=== PATIENT | female | born 1990 | race Caucasian/White ===

== ENCOUNTER 2017-08-09 13:49 | Emergency (ER) | payer SELFPAY ==
--- NOTE | 2017-08-09 13:56 | PDOC ---
History of Present Illness - General History Source: Patient Exam Limitations: No Limitations - History of Present Illness Initial Comments: 08/09/17 14:52 The patient is a 26 year old female, with a significant past medical history of anxiety and insomnia, B12 deficiency, who presents to the emergency department with, multiple complaints. The patient states she has had a persistent non productive cough since April. The patient reports that in April she was diagnosed with pneumonia and prescribed Augmentin which she reports did not help. The patient states she was then switched to a Z-Pack which improved her cough from productive to non productive. The patient also reports she has been measuring her temperature for the past week which has ranged from 92-102F. The patient states she has been taking Motrin for the elevated temperatures with mild relief. The patient also reports recent headache, generalized body aches, decrease in appetite, and one episode of nausea with emesis (non bloody, non bilious) yesterday. She denies recent lightheadedness or dizziness. She denies recent diarrhea or constipation. She denies recent dysuria, frequency, urgency or hematuria. She denies recent chest pain or shortness of breath. Allergies: trazodone <Parish Pratt - Last Filed: 08/09/17 15:14> <Leida Terry - Last Filed: 08/12/17 07:59> - General Chief Complaint: Cold Symptoms Stated Complaint: COUGH BODY ACHES Time Seen by Provider: 08/09/17 13:55 Past History <Parish Pratt - Last Filed: 08/09/17 15:14> - Past Medical History Psychiatric Problems: Yes (ANXIETY,INSOMNIA) - Suicide/Smoking/Psychosocial Hx Smoking History: Never smoked Have you smoked in the past 12 months: No Hx Alcohol Use: No Drug/Substance Use Hx: No Substance Use Type: None <Leida Terry - Last Filed: 08/12/17 07:59> - Past Medical History Allergies/Adverse Reactions: Allergies Allergy/AdvReac Type Severity Reaction Status Date / Time trazodone Allergy Severe Difficulty Verified 08/09/17 13:51 Breathing Home Medications: Ambulatory Orders Citalopram Hydrobromide [Celexa -] 40 mg PO DAILY 08/09/17 Eszopiclone 3 mg PO HS 08/09/17 l-Norgest/E.estradiol-E.estrad [Levono-E Estrad 0.10-0.02-0.01] 1 tab PO DAILY 08/09/17 Review of Systems - Review of Systems Comments:: 08/09/17 14:52 GENERAL/CONSTITUTIONAL: +Fevers. +Decrease in appetite. No weakness. HEAD, EYES, EARS, NOSE AND THROAT: No change in vision. No ear pain or discharge. No sore throat. CARDIOVASCULAR: No chest pain or shortness of breath. RESPIRATORY: +Non productive cough. No wheezing, or hemoptysis. GASTROINTESTINAL:+Nausea. +Vomiting. No diarrhea or constipation. GENITOURINARY: No dysuria, frequency, or change in urination. MUSCULOSKELETAL: +Generalized body aches. No neck or back pain. SKIN: No rash NEUROLOGIC: +Headache. No vertigo, loss of consciousness, or change in strength/ sensation. ENDOCRINE: No increased thirst. No abnormal weight change. HEMATOLOGIC/LYMPHATIC: No anemia, easy bleeding, or history of blood clots. ALLERGIC/IMMUNOLOGIC: No hives or skin allergy. <Parish Pratt - Last Filed: 08/09/17 15:14> *Physical Exam - Vital Signs Last Vital Signs Temp Pulse Resp BP Pulse Ox 98.8 F 93 H 16 121/86 99 08/09/17 13:50 08/09/17 13:50 08/09/17 13:50 08/09/17 13:50 08/09/17 13:50 - Physical Exam Comments: 08/09/17 15:12 GENERAL: Awake, alert, and fully oriented, in no acute distress HEAD: No signs of trauma EYES: PERRLA, EOMI, sclera anicteric, conjunctiva clear ENT: Auricles normal inspection, hearing grossly normal, nares patent, oropharynx clear without exudates. Moist mucosa NECK: +Mild thyromegaly with tenderness to partial right thyroid. Normal ROM, supple, no JVD. LUNGS: Breath sounds equal, clear to auscultation bilaterally. No wheezes, and no crackles HEART: Regular rate and rhythm, normal S1 and S2, no murmurs, rubs or gallops ABDOMEN: Soft, nontender, normoactive bowel sounds. No guarding, no rebound. No masses EXTREMITIES: Normal range of motion, no edema. No clubbing or cyanosis. No cords, erythema, or tenderness NEUROLOGICAL: Cranial nerves II through XII grossly intact. Normal speech, normal gait SKIN: Warm, Dry, normal turgor, no rashes or lesions noted. <Parish Pratt - Last Filed: 08/09/17 15:14> ED Treatment Course - LABORATORY CBC & Chemistry Diagram: 08/09/17 15:08 08/09/17 15:08 - ADDITIONAL ORDERS Additional order review: Laboratory Results 08/09/17 13:57 Urine HCG, Qual Negative <Parish Pratt - Last Filed: 08/09/17 15:14> - LABORATORY CBC & Chemistry Diagram: 08/09/17 15:08 08/09/17 15:08 <Leida Terry - Last Filed: 08/12/17 07:59> Medical Decision Making - Medical Decision Making 08/09/17 17:24 Contacted lab regarding TSH/FT4, it is awaiting pickup to go to [facility]. Will DC patient home in light of normal vital signs. No signs of thyroid storm at present. Will contact her if abnormal. CXR no signs of pneumonia, and she is afebrile in ED. It is possible she may have reflux given the cough and intermittent poor appetite with weight changes. Recommended that she establish care in our clinic, as she will still be in the area as a student for a few more months. <Leida Terry - Last Filed: 08/12/17 07:59> *DC/Admit/Observation/Transfer - Attestations Scribe Attestion: 08/09/17 14:53 Documentation prepared by Parish Pratt, acting as chief medical director for Leida Terry MD. <Parish Pratt - Last Filed: 08/09/17 15:14> - Discharge Dispostion Admit: No <Leida Terry - Last Filed: 08/12/17 07:59> Diagnosis at time of Disposition: Cough - Discharge Dispostion Disposition: HOME Condition at time of disposition: Stable - Referrals Referrals: Facundo Painting MD [Staff Physician] - - Patient Instructions Printed Discharge Instructions: DI for Cough -- Adult Additional Instructions: Please schedule appointment in the [facility] for follow-up in the next 2- 3 days. Return to the ER if you have difficulty breathing, chest pain, palpitations, or persistent fever (more than 5 days). - Post Discharge Activity Forms/Work/School Notes: Back to School
[2017-08-09 14:02] VITALS: TEMP 98.8; BMI 31.3
[2017-08-09 15:38] LABS: ALBUMIN 4.1 g/dl (3.5-5.0); ALK PHOS 75 U/L (32-92); ANION GAP 5 (8-16); BILIRUBIN,TOTAL 0.6 mg/dl (0.2-1.0); BLOOD UREA NITROGEN 7 mg/dl (7-18); CALCIUM 9.2 mg/dl (8.4-10.2); CHLORIDE 107 mmol/L (98-107); CO2 21 mmol/L (22-28); GLUCOSE,RANDOM 87 mg/dl (74-106); SGOT/AST 23 U/L (10-42); SGPT/ALT 15 U/L (10-40); SODIUM 133 mmol/L (136-145)
[2017-08-09 15:50] LABS: CREATININE < 0.8 mg/dl (0.6-1.3)
[2017-08-09 15:56] LABS: BASO % 0.6 % (0-2.0); EOS % 1.1 % (0-4.5); HEMATOCRIT 38.3 % (32.4-45.2); LYMPH % 24.4 % (8-40); MEAN CELL VOLUME 79.5 fl (80-96); MEAN PLT VOLUME 8.5 fl (7.5-11.1); MONO % 6.2 % (3.8-10.2); NEUT % 67.7 % (42.8-82.8); PLATELET COUNT 314 K/MM3 (134-434); RBC 4.82 M/mm3 (3.60-5.2); RDW 13.5 % (11.6-15.6); WHITE BLOOD COUNT 6.3 K/mm3 (4.0-10.8)
[2017-08-09 16:55] VITALS: BP 124/88; PULSE 75
== END 2017-08-09 17:35 | disposition home or self-care (01) ==
LOC: FER 13:49
DX: R05 Cough (principal); F41.9 Anxiety disorder, unspecified
CPT/HCPCS: 36415; 80053; 84439; 84443; 84703; 85025; 99281-25